=== PATIENT | female | born 1985 | race Caucasian/White ===

== ENCOUNTER → 2017-11-18 09:36 | Outpatient (CLI) | payer OTHER, SELFPAY ==
[2017-11-18 16:01] LABS: Chlamydia Trachomatis by PCR Negative (Negative); Neisserai gonorrhoeae by PCR Negative (Negative); Probe Check PASS; Sample Adequacy Control PASS; Specimen Processing Control PASS
[2017-11-26 09:56] LABS: HPV Reflexed? NOT INDICATED
== END ==
PROVIDERS: Visit Provider Obstetrics & Gynecology
DX: Z12.4 Encounter for screening for malignant neoplasm of cervix (principal); Z32.01 Encounter for pregnancy test, result positive; Z11.3 Encounter for screening for infections with a predominantly sexual mode of transmission
CPT/HCPCS: 87491; 87591; 88175; G0145

== ENCOUNTER → 2017-12-03 16:33 | Outpatient (CLI) | payer OTHER, SELFPAY ==
[2017-12-03 17:15] LABS: Absolute Lymphocyte Count 2.23 X10^3/ul (0.83-4.51); Absolute Neutrophil Count 4.4 X10^3/uL (2.0-7.7); Basophil# 0.03 X10^3/uL; Basophil% 0.4 % (0-1); Eosinophil# 0.18 X10^3/uL; Eosinophils% 2.4 % (0-5); Hematocrit 40.2 % (37-47); Lymphocyte # 2.23 X10^3/ul (4.0); Lymphocyte % 29.8 % (19-41); Mean Corp Hgb Conc 34.8 g/gl (32-36); Mean Corpuscular Hgb 31.8 pg (27.0-32.0); Mean Corpuscular Volume 91.4 fL (81-99); Mean Platelet Vol. 9.6 fl (6.2-12.0); Monocyte# 0.64 X10^3/uL; Monocyte% 8.5 % (0-10); Neutrophil # 4.39 X10^3/uL (2.7-7.7); Neutrophil % 58.6 % (47-70); POSITIVE COUNT NO; POSITIVE DIFFERENTIAL NO; POSITIVE MORPHOLOGY NO; Platelet Count 266 K/mm3 (150-450); RBC Distribution Width CV 11.9 % (11.6-14.6); RBC Distribution Width SD 39.3 fl (35.1-43.9); White Blood Count 7.5 K/mm3 (4.4-11.0)
[2017-12-03 17:36] LABS: Color, Urine Straw (Yellow); Glucose, Dipstick Normal (Normal); Ketone-Dipstick Negative (Negative); Leukocyte Esterase-Dipstick Negative /ul (Negative); Nitrite-Dipstick Negative (Negative); Occult Blood-Urine Negative /ul (Negative); Protein-Dipstick Negative (Negative); Urine Bilirubin Dipstick Negative (Negative); Urine Clarity Clear (Clear); Urine Urobilinogen Normal (Normal)
[2017-12-03 17:45] LABS: Amphetamine Urine VISTA NEGATIVE (<1000 ng/mL); Barbiturate Urine VISTA NEGATIVE (< 200 ng/mL); Benzodiazepine Urine VISTA NEGATIVE (< 200 ng/mL); Cocaine Urine VISTA NEGATIVE (< 300 ng/mL); Ecstacy Urine VISTA NEGATIVE (< 500 ng/mL); Methadone Urine VISTA NEGATIVE (< 300 ng/mL); PCP Urine VISTA NEGATIVE (< 25 ng/mL); THC Urine VISTA NEGATIVE (< 50 ng/mL); Vista UDS pH Range 6
[2017-12-03 17:53] LABS: COTININE Drug Screen Negative (<200 ng/mL)
[2017-12-03 17:56] LABS: Thyroid Stim Hormone (TSH) 1.16 uIU/mL (0.358-3.74)
[2017-12-03 18:32] LABS: HIV - WCH Non-Reactive (Nonreactive); Rubella IgG 99.1 IU/mL
[2017-12-05 05:20] LABS: Prenatal RPR NONREACTIVE (NONREACTIVE)
[2017-12-05 08:35] LABS: HEPATITIS B SURFACE AG Negative (Negative); Hep C Antibodies <0.1 s/co ratio (0.0-0.9)
== END ==
PROVIDERS: Visit Provider Obstetrics & Gynecology
DX: Z34.81 Encounter for supervision of other normal pregnancy, first trimester (principal)
CPT/HCPCS: 36415; 80307; 81002; 84443; 85025; 86703; 86762; 86803; 87340

== ENCOUNTER 2018-04-13 14:13 | Outpatient (CLI) | payer OTHER, SELFPAY ==
[2018-04-13 14:34] VITALS: BMI 28.0
[2018-04-13] MEDS: 0.9% NaCl Peripheral Flush Adult/Peds IV (15:15)
[2018-04-13] MEDS: Acetaminophen 500 MG Tablet 1000 MG PO (15:32)
[2018-04-13 15:41] LABS: International Normalized Ratio 0.8; Prothrombin Time (Protime)PT. 11.4 SECONDS (11.7-14.9)
[2018-04-13 15:42] LABS: Partial Thromboplast Time 28.1 Seconds (24.1-36.2)
[2018-04-13 15:48] LABS: Hematocrit 38.5 % (37-47); Hemoglobin 12.9 g/dl (12.0-15.0); Mean Corp Hgb Conc 33.5 g/gl (32-36); Mean Corpuscular Hgb 31.2 pg (27.0-32.0); Mean Platelet Vol. 9.8 fl (6.2-12.0); Platelet Count 275 K/mm3 (150-450); RBC Distribution Width CV 12.7 % (11.6-14.6); Red Blood Count 4.14 M/mm3 (4.2-5.4); White Blood Count 10.9 K/mm3 (4.4-11.0)
[2018-04-13 15:48] LABS: Creatinine, Urine (random) < 13.00 mg/dL (NO RANGE EST.); Protein, Urine (Random) < 6.0 mg/dL (<11.9)
[2018-04-13 15:50] LABS: Scan Indicated on CBC? Y/N NO
[2018-04-13 16:00] LABS: AST(SGOT) 9 U/L (15-37); Alanine Aminotransfer ALT/SGPT 16 U/L (13-56); Creatinine, Serum 0.57 mg/dL (0.55-1.02); EST Glomerular Filtration Rate 131 mL/min (>60); Est Glom Filt Rate - Afr Amer 159 mL/min (>60); Estimated Creatinine Clearance 106.92 ml/min; Uric Acid 3.7 mg/dL (2.6-6.0)
--- NOTE | 2018-04-13 16:45 | OB.TRI.HP_ITS ---
History of Present Illness Date of Service: 04/13/18 Was patient seen by the physician?: Yes Reason For Visit: R/O PRE E Date of Service: 04/13/18 Final MEETA: 07/12/18 Final MEETA Source: US <20 weeks Gestational age: 27 Weeks and 1 Days History of Present Illness: 27+ week intrauterine presents with headache since this morning. However, she has had headaches virtually every day of her life and often times takes medication for this. She called today to see if she might be able to get a prescription for Fioricet because her headache seemed worse today. Patient denies any epigastric tenderness or pain and denies any unusual symptoms with her headaches. Allergies No Known Allergies Allergy (Verified 04/13/18 14:35) Laboratory Studies: Laboratory Tests 04/13/18 04/13/18 04/13/18 Range/Units 15:15 15:15 15:15 WBC 10.9 (4.4-11.0) K/mm3 RBC 4.14 L (4.2-5.4) M/mm3 Hgb 12.9 (12.0-15.0) g/dl Hct 38.5 (37-47) % MCV 93.0 (81-99) fL MCH 31.2 (27.0-32.0) pg MCHC 33.5 (32-36) g/gl RDW 12.7 (11.6-14.6) % RDW Differential 43.0 (35.1-43.9) fl Plt Count 275 (150-450) K/mm3 MPV 9.8 (6.2-12.0) fl PT 11.4 L (11.7-14.9) SECONDS INR 0.8 APTT 28.1 (24.1-36.2) Seconds Creatinine 0.57 (0.55-1.02) mg/dL Estim Creat Clear Calc 106.92 ml/min Est GFR (MDRD) Af Amer 159 (>60) mL/min Est GFR (MDRD) Non-Af 131 (>60) mL/min Uric Acid 3.7 (2.6-6.0) mg/dL AST 9 L (15-37) U/L ALT 16 (13-56) U/L U Random Total Protein (<11.9) mg/dL Urine Creatinine (NO RANGE EST.) mg/dL Protein/Creatinin Ratio 04/13/18 Range/Units 15:10 WBC (4.4-11.0) K/mm3 RBC (4.2-5.4) M/mm3 Hgb (12.0-15.0) g/dl Hct (37-47) % MCV (81-99) fL MCH (27.0-32.0) pg MCHC (32-36) g/gl RDW (11.6-14.6) % RDW Differential (35.1-43.9) fl Plt Count (150-450) K/mm3 MPV (6.2-12.0) fl PT (11.7-14.9) SECONDS INR APTT (24.1-36.2) Seconds Creatinine (0.55-1.02) mg/dL Estim Creat Clear Calc ml/min Est GFR (MDRD) Af Amer (>60) mL/min Est GFR (MDRD) Non-Af (>60) mL/min Uric Acid (2.6-6.0) mg/dL AST (15-37) U/L ALT (13-56) U/L U Random Total Protein < 6.0 (<11.9) mg/dL Urine Creatinine < 13.00 (NO RANGE EST.) mg/dL Protein/Creatinin Ratio TNP NST - FHR Rate Baby A NST Reactive:: Appropriate for gestational age Impression/Plan 27+ week intrauterine with chronic headaches. No evidence of -induced hypertension either in physical exam or and labs. Prescription for Fioricet given. Follow-up tomorrow for blood pressure check as blood pressures were sporadically high which patient indicates is common for h er. heart tones were reassuring at 27+ week gestation.
== END 2018-04-13 17:10 | disposition home or self-care (01) ==
LOC: WPOUT 14:22 → WP 14:22
PROVIDERS: Referring Provider Obstetrics & Gynecology; Visit Provider Obstetrics & Gynecology
DX: O26.892 Other specified pregnancy related conditions, second trimester (principal); R51 Headache; Z3A.27 27 weeks gestation of pregnancy
CPT/HCPCS: 36415; 59025; 59050; 82565; 82570; 84156; 84450; 84460; 84550; 85027; 85610; 85730; 99218; A4216; G0378

== ENCOUNTER → 2018-04-16 09:20 | Outpatient (CLI) | payer OTHER, SELFPAY ==
[2018-04-16 13:00] LABS: Hematocrit 33.9 % (37-47); Hemoglobin 11.4 g/dl (12.0-15.0); Mean Corp Hgb Conc 33.6 g/gl (32-36); Mean Corpuscular Hgb 31.4 pg (27.0-32.0); Mean Corpuscular Volume 93.4 fL (81-99); Mean Platelet Vol. 10.5 fl (6.2-12.0); Platelet Count 235 K/mm3 (150-450); RBC Distribution Width CV 12.3 % (11.6-14.6); RBC Distribution Width SD 41.1 fl (35.1-43.9); Red Blood Count 3.63 M/mm3 (4.2-5.4); Scan Indicated on CBC? Y/N NO; White Blood Count 8.3 K/mm3 (4.4-11.0)
[2018-04-16 13:08] LABS: Glucose Challenge Gest 1H 50g 114 mg/dL (70-140)
== END ==
PROVIDERS: Visit Provider Obstetrics & Gynecology
DX: Z34.82 Encounter for supervision of other normal pregnancy, second trimester (principal)
CPT/HCPCS: 36415; 82950; 85027

== ENCOUNTER → 2018-06-10 16:30 | Outpatient (CLI) | payer OTHER, SELFPAY | PROVIDERS: Visit Provider Obstetrics & Gynecology | DX: Z36.85 Encounter for antenatal screening for Streptococcus B (principal) | CPT/HCPCS: 87081 ==

== ENCOUNTER 2018-07-06 04:50 | Inpatient (IN) | payer OTHER, SELFPAY ==
[2018-07-06] VITALS (21 sets, daily range): BP systolic 127–154; BP diastolic 76–101; PULSE 66–79; RESP 14–18; TEMP 36.1–36.6; O2SAT 96–100; BMI 28.6
[2018-07-06] MEDS: Lactated Ringers 1,000 ML 999 ML IV (05:19)
[2018-07-06 05:50] LABS: Absolute Lymphocyte Count 2.24 X10^3/ul (0.83-4.51); Basophil# 0.02 X10^3/uL; Basophil% 0.3 % (0-1); Eosinophil# 0.06 X10^3/uL; Eosinophils% 0.8 % (0-5); Hematocrit 36.9 % (37-47); Hemoglobin 12.8 g/dl (12.0-15.0); Lymphocyte # 2.24 X10^3/ul (4.0); Lymphocyte % 28.5 % (19-41); Mean Corp Hgb Conc 34.7 g/gl (32-36); Mean Corpuscular Hgb 32.2 pg (27.0-32.0); Mean Corpuscular Volume 92.9 fL (81-99); Mean Platelet Vol. 10.3 fl (6.2-12.0); Monocyte# 0.52 X10^3/uL; Monocyte% 6.6 % (0-10); Neutrophil % 63.5 % (47-70); Platelet Count 214 K/mm3 (150-450); RBC Distribution Width CV 12.4 % (11.6-14.6); RBC Distribution Width SD 40.9 fl (35.1-43.9); Red Blood Count 3.97 M/mm3 (4.2-5.4); White Blood Count 7.9 K/mm3 (4.4-11.0)
[2018-07-06] MEDS: Lactated Ringers 1,000 ML 150 ML IV (05:55)
[2018-07-06 05:57] LABS: POSITIVE COUNT NO; POSITIVE DIFFERENTIAL NO; POSITIVE MORPHOLOGY NO
[2018-07-06 06:08] LABS: International Normalized Ratio 0.9; Partial Thromboplast Time 27.3 Seconds (24.1-36.2); Prothrombin Time (Protime)PT. 11.6 SECONDS (11.7-14.9)
[2018-07-06] MEDS: Sodium Citrate/Citric Acid 30 ML UDC PO (07:13)
[2018-07-06] MEDS: Ondansetron 4 MG/2 ML Vial IV (07:31)
[2018-07-06] MEDS: Cefazolin 2 GM in 0.9% Normal Saline 100 ML IV (07:31)
[2018-07-06] MEDS: Oxytocin 30 units/NS 500 ml 30 UNITS/500 ML IV.SOLN 167 UNITS IV (07:56)
[2018-07-06] MEDS: Ketorolac 30 MG/ML Syringe IV ×3 (08:10→20:24)
--- NOTE | 2018-07-06 08:14 | PCM.OB.CSR ---
Delivery Classification: Scheduled Final MEETA: 07/12/18 Final MEETA Source: US <20 weeks Gestational age: 39 Weeks and 1 Days Indications for : Repeat Elective Description of Procedure: Delivery of a live male weighing [id number]. Apgars 8/9. Kiwi used to assist delivery. Normal appearing uterus, ovaries, and fallopian tubes. Minimal scarring. Amniotic Membrane Rupture Type: Artificial Amniotic Fluid Description: Clear Placenta Disposition: [facility] Specimen(s) sent to pathology: cord blood Drain: Belcher to straight drain Fluids Replaced: 1000cc LR Cord Entanglement: None Nuchal Cord Compression: Without compression Cord Vessel Description: 3 Vessels Esitmated Blood Loss (ml): 400 Infant Gender: Male (1 minute): 8 (5 minute): 9 Pre-op Antibiotic Given: Ancef 2 grams IV x1 Pt instructed on risks of surgery: Bleeding, Infection, Need for Future C-Sections, Injury to surrounding structure(s) including bowel and bladder Complications: None - Admit VTE Documentation VTE Present on Admission: No VTE Mechan Device Prophylaxis: SCD's VTE Pharm Prophylaxis ordered?: No
--- NOTE | 2018-07-06 08:17 | OP.PCM_ITS ---
Delivery Classification: Scheduled Final MEETA: 07/12/18 Final MEETA Source: US <20 weeks Gestational age: 39 Weeks and 1 Days Indications for : Repeat Elective Description of Procedure: Delivery of a live male weighing [id number]. Apgars 8/9. Kiwi used to assist delivery. Normal appearing uterus, ovaries, and fallopian tubes. Minimal scarring. Amniotic Membrane Rupture Type: Artificial Amniotic Fluid Description: Clear Placenta Disposition: [facility] Specimen(s) sent to pathology: cord blood Drain: Belcher to straight drain Fluids Replaced: 1000cc LR Cord Entanglement: None Nuchal Cord Compression: Without compression Cord Vessel Description: 3 Vessels Esitmated Blood Loss (ml): 400 Infant Gender: Male (1 minute): 8 (5 minute): 9 Pre-op Antibiotic Given: Ancef 2 grams IV x1 Pt instructed on risks of surgery: Bleeding, Infection, Need for Future C- Sections, Injury to surrounding structure(s) including bowel and bladder Complications: None - Admit VTE Documentation VTE Present on Admission: No VTE Mechan Device Prophylaxis: SCD's VTE Pharm Prophylaxis ordered?: No
--- NOTE | 2018-07-06 08:17 | PCM.OPRPT ---
Report of Operation Date of Procedure: 07/06/18 Pre-Operative Diagnosis: Previous Section at 39w1d EGA Post-Operative Diagnosis: Same Surgery/Procedure Performed:: Repeat Low Transverse Section Type of Anesthesia:: Spinal Anesthesiologist: Juancarlos Linares Special Medications: none Specimen's removed: Cord Blood Drains: Lafleur Estimated Blood Loss (mL): 400 Fluids Replaced: 1000cc LR Description of Procedure: Gerda was taken to the OR with IV running. Spinal anesthesia was introduced without complication. She was given two grams of Ancef IV for surgical prophylaxis. A lafleur catheter was placed. She was then prepped and draped in the supine position with a leftward tilt. Anesthesia was checked and once adequate a Pfannensteil incision was made in the lower abdomen over the previous scar. The underlying subcutaneous tissue was dissected down to the level of fascia using sharp and blunt dissection. The fascia was then incised transversely in the midline. This defect was extended bilaterally with the Clemente scissors. The upper portion of the fascial defect was then grasped with two Franko clamps, elevated, and the rectus muscles were dissected off with blunt and sharp dissection. In a similar fashion the fascia was dissected off the lower rectus muscles. The rectus muscles were then in the midline, the peritoneum identified and entered bluntly. The peritoneal defect was then enlarged using retraction. A bladder blade was then placed. The vesicouterine peritoneum was then incsed and a bladder flap created. The bladder blade was then replaced. The lower uterine segement was then incised transversely. This defect was enlarged using blunt retraction. Due to difficulty delivering the vertex the Kiwi device was used to assist delivery of the head. The remainder of the delivery was uneventful. The cord was clamped and cut and the baby handed off to the waiting nurse for evaluation. The placenta was then delivered manually. The uterus was exteriorized and the cavity cleared of all clot and membranes. The uterine defect was then repaired in two layers with #1 Vicryl suture. The posterior cul de sac and gutters were cleared of all clot and fluid. The uterus was then returned to the abdomen. The uterine incision was inspected and found to be hemostatic. The periotoneum was then closed with a running stitch of 2-0 Vicryl. The rectus muscles were reapproximated with interrupted sutures of 0-Vicryl. The fascia was closed with a running stitch of #1 Stratofix suture. The subcutaneous tissue was closed with a running stitch of 2-0 Vicryl. The skin was closed with a subcuticular stitch of 4-0 Monocryl. Sponge, lap, instrument, and needle counts were correct. Gerda was taken to her recovery room in stable condition. Grafts/Implants Used: none - Complications none - Admit VTE Documentation VTE Present on Admission: No VTE Mechan Device Prophylaxis: SCD's VTE Pharm Prophylaxis ordered?: No
[2018-07-06] MEDS: Lactated Ringers 1,000 ML 100 ML IV ×3 (08:35→23:23)
[2018-07-06] MEDS: Acetaminophen 500 MG Tablet 1000 MG PO ×2 (09:43→18:26)
[2018-07-06] MEDS: 0.9% Saline Lock 10 ML Syringe IV (14:09)
[2018-07-06] MEDS: Cefazolin 1 GM/50 ML BAG IV ×2 (15:46→23:24)
[2018-07-06] MEDS: Ferrous Sulfate 325 MG Tablet PO (17:01)
[2018-07-06] MEDS: Prenatal Vits Tablet 1 TABLET PO (17:01)
[2018-07-06] MEDS: Senna/Docusate Sodium 1 Tablet PO (23:40)
[2018-07-07] VITALS (8 sets, daily range): BP systolic 124–163; BP diastolic 73–93; PULSE 66–80; RESP 15–18; TEMP 36.3–36.6; O2SAT 96–98
[2018-07-07] MEDS: Acetaminophen 500 MG Tablet 1000 MG PO (02:39)
[2018-07-07] MEDS: Ketorolac 30 MG/ML Syringe IV ×4 (02:39→20:18)
[2018-07-07 04:53] LABS: Hematocrit 28.7 % (37-47); Hemoglobin 9.7 g/dl (12.0-15.0); Mean Corp Hgb Conc 33.8 g/gl (32-36); Mean Corpuscular Hgb 31.7 pg (27.0-32.0); Mean Corpuscular Volume 93.8 fL (81-99); Mean Platelet Vol. 9.6 fl (6.2-12.0); Platelet Count 164 K/mm3 (150-450); RBC Distribution Width CV 12.2 % (11.6-14.6); RBC Distribution Width SD 40.9 fl (35.1-43.9); Red Blood Count 3.06 M/mm3 (4.2-5.4); Scan Indicated on CBC? Y/N NO; White Blood Count 8.4 K/mm3 (4.4-11.0)
[2018-07-07] MEDS: Senna/Docusate Sodium 1 Tablet PO ×2 (08:04→22:04)
[2018-07-07] MEDS: oxyCODONE 5 MG Tablet PO ×4 (08:04→22:05)
[2018-07-07] MEDS: Ferrous Sulfate 325 MG Tablet PO (08:06)
--- NOTE | 2018-07-07 09:38 | DCINST_ITS ---
Discharge Diet: No Restrictions Discharge Activity: Return to Normal Activity, May Not Drive, May not drive while taking narcotic pain medications., May Shower Return to work on:: 09/04/18 May shower in (days): 0 May resume sexual activity in: 4-6 weeks Call your doctor if your incision/area has: Continuous Slow Oozing Call your doctor if you observe: Fever of 101 or Higher, Inability to urinate, Inability to have a bowel movement, Using more than one pad per hour, Shortness of breath, Chest pain, Calf discomfort, Uncontrolled pain Remove Dressing in (days):: 3 Cleanse incision/area with: Soap & Water Additional Instructions: If you experience any of the following, contact your healthcare provider. * Bleeding that soaks a pad every hour for 2 hours * Fever 100.4 or higher * Unrelieved incision or abdominal pain * Swelling, redness, discharge or bleeding from your incision or episiotomy site * Your incision begins to separate * Problems urinating (including inability to urinate or burning while urinating). * Visual changes * Severe headache * Flu-like symptoms * Pain or redness in one of both of your breasts * Pain, warmth, tenderness or swelling in your legs, especially the calf area * Frequent nausea and vomiting * Symptoms of depression or anxiety If you experience any of the following, call 911 or go to the nearest Emergency Room. * Chest pain * Problems breathing * Seizure activity * Partial or complete paralysis of a body part, slurred speech, weakness or drooping of the face, or a sudden inability to walk or hold your balance Allergies/Adverse Reactions: Allergies No Known Allergies Allergy (Verified 07/06/18 05:21) Medications to take at Discharge Acetaminophen [Tylenol Extra Strength] 500 - 1,000 mg PO Q6H PRN PRN 04/13/18 Vits [Prenatabs FA ] 1 tab PO DAILY 04/13/18 Ferrous Sulfate 325 mg PO DAILY@0800 07/06/18 Ibuprofen 600 mg PO 4X/DAY #30 tab 07/07/18 Oxycodone [Oxyir] 5 - 10 mg PO Q4H PRN PRN 7 Days #28 tab 07/07/18 The following prescriptions were given: Oxycodone [Oxyir] 5 - 10 mg PO Q4H PRN PRN 7 Days #28 tab PRN Reason: Mod-Severe Pain (4-03/18) Ibuprofen 600 mg PO 4X/DAY #30 tab Follow-Up: Call to make an appointment with your doctor for an incision check in 1-2 weeks. You will also need a 6 week post- follow up appointment. Test results from this visit will be discussed in further detail at your follow- up appointment, if applicable. Please Follow Up With: Everett Mo MD When: 2 weeks Proposed Discharge Date: 07/08/18
--- NOTE | 2018-07-07 09:58 | PCM.PN.OB ---
Subjective: Some pain this morning but controlled with oxycodone and toradol. Bleeding light. Breast feeding. Voiding. Objective: Afeb VSS. Urine output appropriate. Hgb appropriate on POD#1. - Physical Exam General: Alert, Oriented x3, Cooperative, No apparent distress Lungs: Clear to auscultation, Normal air movement Cardiovascular: Regular rate, Regular Rhythm Abdomen: Soft, Non Tender, Non-Distended, - - Fundus firm, incision dressing dry Extremities: No edema Skin: No rashes Neurological: Neuro grossly intact Psych/Mental Status: Normal Affect Comment: Lochia appropriate Vital Signs Temp Pulse Resp BP Pulse Ox 97.4 F L 80 15 124/77 H 97 07/07/ 04:41 07/07/18 06:23 07/07/18 06:23 07/07/18 04:41 07/07/18 06:23 Oxygen Delivery Method Room Air Weight: 151 lb 10.848 oz Body Mass Index (BMI) 28.6 Intake and Output for Last 24 Hours 01// 01//19 07/07/18 23:59 23:59 23:59 Intake Total 3830 / 3830 Output Total 2100 / 2100 750 / 750 Balance 1730 / 1730 -750 / -750 Laboratory Tests Past 24 Hrs // 04:41 WBC 8.4 RBC 3.06 L Hgb 9.7 L Hct 28.7 L MCV 93.8 MCH 31.7 MCHC 33.8 RDW 12.2 RDW Differential 40.9 Plt Count 164 MPV 9.6 Medical Necessity - Tobacco Use Smoking Status: Former smoker Assessment/Plan Doing well on POD#1. Continue routine PO care.
[2018-07-07] MEDS: Prenatal Vits Tablet 1 TABLET PO (12:21)
[2018-07-07] MEDS: 0.9% Saline Lock 10 ML Syringe IV ×2 (14:36→20:18)
[2018-07-08] VITALS (10 sets, daily range): BP systolic 119–177; BP diastolic 74–100; PULSE 74–89; RESP 16–20; TEMP 36.6–36.8; O2SAT 95–98
[2018-07-08] MEDS: Ketorolac 30 MG/ML Syringe IV (02:13)
[2018-07-08] MEDS: 0.9% Saline Lock 10 ML Syringe IV ×2 (02:13→14:51)
[2018-07-08] MEDS: oxyCODONE 5 MG Tablet PO ×5 (02:24→22:04)
--- NOTE | 2018-07-08 05:21 | NURSING ---
2006 BP 152/93 0210 BP 161/98 and charge nurse Tata RN informed at this time. stated to recheck BP within the next half hour. 0230 BP 141/80 and pt has no complaints of headache, blurred vision, seeing spots, swelling, etc. 0320 BP 157/92 and charge nurse Tata RN came with this RN to assess pt. no clonus or hyperactive reflexes present. pt still asymptomatic with no complaints. pain being treated with oxy ir and toradol when needed. 0457 BP 119/74 and pt asymptomatic. 0505 Dr. Nick updated with most recent vital signs and pt behavior. no symptoms noted. Dr. Nick states she will consider procarida 30 mg daily when she views trends. with the latest BP, Dr. Nick does not want to order any medication. will continue to monitor pt for symptoms. no further needs at this time.
[2018-07-08] MEDS: Ferrous Sulfate 325 MG Tablet PO (08:02)
[2018-07-08] MEDS: Senna/Docusate Sodium 1 Tablet PO (08:02)
--- NOTE | 2018-07-08 08:32 | PCM.PN.OB ---
Subjective: Some episodes of pain. Seems controlled with oxycodone. Has episodes of elevated BP when painful but no other signs of preeclampsia. Breast feeding. Bleeding light. Objective: Afeb VSS - Physical Exam General: Alert, Oriented x3, Cooperative, No apparent distress Lungs: Clear to auscultation, Normal air movement Cardiovascular: Regular rate, Regular Rhythm Abdomen: Soft, Non Tender, Non-Distended, - - Incision dressing dry Extremities: No edema Skin: No rashes Neurological: Neuro grossly intact Psych/Mental Status: Normal Affect Comment: Lochia light Vital Signs Temp Pulse Resp BP Pulse Ox 97.8 F 89 16 119/74 97 07/08/18 02:10 07/08/18 02:10 07/08/18 02:10 07/08/18 04:57 07/07/18 08:00 Oxygen Delivery Method Room Air Weight: 151 lb 10.848 oz Body Mass Index (BMI) 28.6 Intake and Output for Last 24 Hours 07/06/18 07/07/18 07/08/18 23:59 23:59 23:59 Intake Total 3830 / 3830 1300 / 1300 Output Total 2100 / 2100 2150 / 2150 Balance 1730 / 1730 -850 / -850 Medical Necessity - Tobacco Use Smoking Status: Former smoker Assessment/Plan Will observe BPs. Instructed to ask for pain medication when needed. Anticipate discharge home tomorrow.
[2018-07-08] MEDS: Ibuprofen 600 MG Tablet PO ×2 (10:04→18:50)
[2018-07-08] MEDS: Prenatal Vits Tablet 1 TABLET PO (12:51)
[2018-07-08] MEDS: Acetaminophen 500 MG Tablet 1000 MG PO (14:51)
--- NOTE | 2018-07-08 20:35 | NURSING ---
2021 called to notify of current BP values and values throughout the day. made aware of pt c/o headache, but no other symptoms. Orders received to obtain PIH panel, give Fiorcet to pt for headache and to call if any other symptoms develop and/or BP is 160systolic and/or diastolic 100 or greater.
[2018-07-08] MEDS: Acetaminophen/Butalbital/Caffe 1 Tablet 2 TABLET PO (21:11)
[2018-07-08 21:13] LABS: International Normalized Ratio 0.8; Partial Thromboplast Time 29.7 Seconds (24.1-36.2); Prothrombin Time (Protime)PT. 11.1 SECONDS (11.7-14.9)
[2018-07-08 21:15] LABS: Hemoglobin 9.7 g/dl (12.0-15.0); Mean Corp Hgb Conc 33.4 g/gl (32-36); Mean Corpuscular Hgb 31.3 pg (27.0-32.0); Mean Corpuscular Volume 93.5 fL (81-99); Mean Platelet Vol. 9.7 fl (6.2-12.0); Platelet Count 217 K/mm3 (150-450); RBC Distribution Width CV 12.6 % (11.6-14.6); RBC Distribution Width SD 42.8 fl (35.1-43.9); White Blood Count 7.6 K/mm3 (4.4-11.0)
[2018-07-08 21:16] LABS: AST(SGOT) 16 U/L (15-37); Alanine Aminotransfer ALT/SGPT 11 U/L (13-56); Creatinine, Serum 0.55 mg/dL (0.55-1.02); EST Glomerular Filtration Rate 135 mL/min (>60); Est Glom Filt Rate - Afr Amer 164 mL/min (>60); Estimated Creatinine Clearance 110.81 ml/min; Uric Acid 4.7 mg/dL (2.6-6.0)
[2018-07-08 21:17] LABS: Scan Indicated on CBC? Y/N NO
[2018-07-08 22:03] LABS: Creatinine, Urine (random) < 13.00 mg/dL (NO RANGE EST.); Protein, Urine (Random) < 6.0 mg/dL (<11.9)
[2018-07-09 01:45] VITALS: BP 138/91; PULSE 86; RESP 16; TEMP 36.3
[2018-07-09] MEDS: oxyCODONE 5 MG Tablet PO ×3 (02:11→13:29)
[2018-07-09] MEDS: Acetaminophen/Butalbital/Caffe 1 Tablet 2 TABLET PO (04:24)
[2018-07-09] MEDS: Ibuprofen 600 MG Tablet PO (07:11)
[2018-07-09 08:00] VITALS: BP 142/89; PULSE 71; RESP 16; TEMP 36.7
--- NOTE | 2018-07-09 08:12 | PCM.PN.OB ---
Subjective: Some incisional soreness. BPs elevated at times but likely related to painful episodes. Bleeding light. Breast feeding. Objective: AFeb VSS Some elevated BPs but normal when more comfortable. - Physical Exam General: Alert, Oriented x3, Cooperative, No apparent distress Lungs: Clear to auscultation, Normal air movement Cardiovascular: Regular rate, Regular Rhythm Abdomen: Soft, Non Tender, Non-Distended, - - Incision dressing dry. Fundus firm. Extremities: No edema Skin: No rashes Neurological: Neuro grossly intact Psych/Mental Status: Normal Affect Comment: Lochia light Vital Signs Temp Pulse Resp BP Pulse Ox 97.3 F L 86 16 138/91 H 98 07/09/18 01:45 07/09/18 01:45 07/09/18 01:45 07/09/18 01:45 07/08/18 20:07 Oxygen Delivery Method Room Air Weight: 151 lb 10.848 oz Body Mass Index (BMI) 28.6 Intake and Output for Last 24 Hours 07/07/18 07/08/18 07/09/18 23:59 23:59 23:59 Intake Total 1300 / 1300 Output Total 2150 / 2150 Balance -850 / -850 Laboratory Tests Past 24 Hrs 07/08/18 07/08/18 07/08/18 20:50 20:50 20:50 WBC 7.6 RBC 3.10 L Hgb 9.7 L Hct 29.0 L MCV 93.5 MCH 31.3 MCHC 33.4 RDW 12.6 RDW Differential 42.8 Plt Count 217 MPV 9.7 PT 11.1 L INR 0.8 APTT 29.7 Creatinine 0.55 Estim Creat Clear Calc 110.81 Est GFR (MDRD) Af Amer 164 Est GFR (MDRD) Non-Af 135 Uric Acid 4.7 AST 16 ALT 11 L U Random Total Protein Urine Creatinine Protein/Creatinin Ratio 07/08/18 21:15 WBC RBC Hgb Hct MCV MCH MCHC RDW RDW Differential Plt Count MPV PT INR APTT Creatinine Estim Creat Clear Calc Est GFR (MDRD) Af Amer Est GFR (MDRD) Non-Af Uric Acid AST ALT U Random Total Protein < 6.0 Urine Creatinine < 13.00 Protein/Creatinin Ratio TNP Medical Necessity - Tobacco Use Smoking Status: Former smoker Assessment/Plan Doing well on POD#3. Some elevated BPs but no signs of preeclampsia and normal PIH labs. Will discharge home today. Home going instructions and warnings given.
--- NOTE | 2018-07-09 08:25 | PCM.DC.SUM ---
Discharge Date and Diagnosis Date of Admission: 07/06/18 Date of Discharge: 07/09/18 - Primary Discharge Diagnosis S/P repeat LTCS Hospital Course and Treatment Operations: - - LTCS Summary of Care Provided: The patient is a 32 year old F [admitted at term for repeat LTCS. This was performed without complication. Post operative course was unremarkable. Discharged home on POD#3.] - Physical Exam Vital Signs Temp Pulse Resp BP Pulse Ox 97.3 F L 86 16 138/91 H 98 07/09/18 01:45 07/09/18 01:45 07/09/18 01:45 07/09/18 01:45 07/08/18 20:07 Oxygen Delivery Method Room Air Weight: 151 lb 10.848 oz Body Mass Index (BMI) 28.6 Intake and Output for Last 24 Hours 07/07/18 07/08/18 07/09/18 23:59 23:59 23:59 Intake Total 1300 / 1300 Output Total 2150 / 2150 Balance -850 / -850 Laboratory Tests Past 24 Hrs 07/08/18 07/08/18 07/08/18 20:50 20:50 20:50 WBC 7.6 RBC 3.10 L Hgb 9.7 L Hct 29.0 L MCV 93.5 MCH 31.3 MCHC 33.4 RDW 12.6 RDW Differential 42.8 Plt Count 217 MPV 9.7 PT 11.1 L INR 0.8 APTT 29.7 Creatinine 0.55 Estim Creat Clear Calc 110.81 Est GFR (MDRD) Af Amer 164 Est GFR (MDRD) Non-Af 135 Uric Acid 4.7 AST 16 ALT 11 L U Random Total Protein Urine Creatinine Protein/Creatinin Ratio 07/08/18 21:15 WBC RBC Hgb Hct MCV MCH MCHC RDW RDW Differential Plt Count MPV PT INR APTT Creatinine Estim Creat Clear Calc Est GFR (MDRD) Af Amer Est GFR (MDRD) Non-Af Uric Acid AST ALT U Random Total Protein < 6.0 Urine Creatinine < 13.00 Protein/Creatinin Ratio TNP Discharge Diet: No Restrictions Discharge Activity: Return to Normal Activity, May Not Drive, May not drive while taking narcotic pain medications., May Shower Return to work on:: 09/04/18 May shower in (days): 0 May resume sexual activity in: 4-6 weeks Call your doctor if your incision/area has: Continuous Slow Oozing Call your doctor if you observe: Fever of 101 or Higher, Inability to urinate, Inability to have a bowel movement, Using more than one pad per hour, Shortness of breath, Chest pain, Calf discomfort, Uncontrolled pain Remove Dressing in (days):: 3 Cleanse incision/area with: Soap & Water Home Medications: Medications to take at Discharge Acetaminophen [Tylenol Extra Strength] 500 - 1,000 mg PO Q6H PRN PRN 04/13/18 Vits [Prenatabs FA ] 1 tab PO DAILY 04/13/18 Ferrous Sulfate 325 mg PO DAILY@0800 07/06/18 Ibuprofen 600 mg PO 4X/DAY #30 tab 07/07/18 Oxycodone [Oxyir] 5 - 10 mg PO Q4H PRN PRN 7 Days #28 tab 07/07/18 Butalb/Acetaminophen/Caffeine [Fioricet 50-300-40 mg Capsule] 1 ea PO Q4H PRN PRN #30 cap 07/09/18 Following Prescrptions Were Given to Patient: Butalb/Acetaminophen/Caffeine [Fioricet 50-300-40 mg Capsule] 1 ea PO Q4H PRN PRN #30 cap PRN Reason: Headache Oxycodone [Oxyir] 5 - 10 mg PO Q4H PRN PRN 7 Days #28 tab PRN Reason: Mod-Severe Pain (4-10/10) Ibuprofen 600 mg PO 4X/DAY #30 tab Please Follow Up With: Everett Mo MD When: 2 weeks Disposition: Home Minutes spent on discharge:: 15 Patient Condition:: Good Medical Necessity - Tobacco Use Smoking Status: Former smoker Meaningful Use Info Meaningful Use Diagnoses (Choose all that apply): None applicable
[2018-07-09] MEDS: Prenatal Vits Tablet 1 TABLET PO (08:30)
[2018-07-09] MEDS: Senna/Docusate Sodium 1 Tablet PO (08:30)
[2018-07-09] MEDS: Ferrous Sulfate 325 MG Tablet PO (08:30)
[2018-07-09 13:40] VITALS: BP 151/91; PULSE 76; RESP 20; TEMP 36.4
== END 2018-07-09 14:20 | disposition home or self-care (01) | DRG 787 ==
PROVIDERS: Admitting Provider Obstetrics & Gynecology; Visit Provider Obstetrics & Gynecology
PROC: 10D00Z1 Extraction of Products of Conception, Low, Open Approach (ICD-10-PCS; CPT 59514; principal; 2018-07-06 07:15)
DX: O34.211 Maternal care for low transverse scar from previous cesarean delivery (principal); O10.92 Unspecified pre-existing hypertension complicating childbirth; N85.8 Other specified noninflammatory disorders of uterus; Z3A.39 39 weeks gestation of pregnancy; Z37.0 Single live birth; Z87.891 Personal history of nicotine dependence
CPT/HCPCS: 82565; 82570; 84156; 84450; 84460; 84550; 85025; 85027; 85610; 85730; 86850; 86900; 99218; J7120; A4216; G0378; J2405